=== PATIENT | female | born 1950 | race Hispanic/Latino ===

== ENCOUNTER 2021-04-03 20:39 | Emergency (ER) | payer MEDICARE, SELFPAY ==
--- NOTE | ~2021-04-03 | XR_ITS ---
XR foot LT min 3V DATE: 04/03/2021 21:18 INDICATION: Chronic ankle and calcaneal pain, worsening over the past 3 days TECHNIQUE: 4 views COMPARISON: None FINDINGS: There is diffuse osteopenia. Mild hallux valgus and bunion deformity. No fracture, dislocation, periosteal reaction or bone destruction. IMPRESSION: Mild hallux valgus and bunion deformity Osteopenia Reviewed, dictated and finalized at location A.
--- NOTE | ~2021-04-03 | XR_ITS ---
XR knee LT min 4V DATE: 04/03/2021 21:17 INDICATION: Anterior knee pain for 3 days. No injury. TECHNIQUE: 4 views COMPARISON: None FINDINGS: There is moderate suprapatellar knee joint effusion. Diffuse osteopenia. There is tricompartment periarticular spurring/mild osteoarthritis. Joint spaces appear relatively pr eserved. No fracture, dislocation, periosteal reaction or bone destruction, radiopaque intra-articular loose b tess or chondrocalcinosis. IMPRESSION: Knee joint effusion Tricompartment osteoarthritis Osteopenia Reviewed, dictated and finalized at location A.
[2021-04-03 20:42] VITALS: BP 136/76; PULSE 81; RESP 16; TEMP 36.4; O2SAT 99
[2021-04-03 22:09] VITALS: BP 144/66; PULSE 78; RESP 20; TEMP 37.1; O2SAT 99
[2021-04-04 00:08] VITALS: BP 133/86; PULSE 88; RESP 20; O2SAT 100
--- NOTE | 2021-04-04 00:14 | ED.GENADULT ---
HPI - General Adult General Chief complaint: Extremity Injury, Lower Stated complaint: heel pain Time Seen by Provider: 04/03/21 23:43 Source: patient and family Limitations: language barrier History of Present Illness HPI narrative: Patient is a 70 y/o female complaining of severe left knee pain while she was sitting in bed watching TV. She describes her pain sharp and rates it as 10/10 when it occurred. There was no known alleviating or exacerbating factor. However, her pain has resolved spontaneously. She has no pain at this time. Of note, patient is non [place] speaking and provided translation. Related Data Allergies Allergy/AdvReac Type Severity Reaction Status Date / Time diphenhydramine Allergy Mild Unknown Verified 04/03/21 22:16 Review of Systems Constitutional: Constitutional: Denies chills, Denies fever(s), Denies headache(s) and Denies weakness Eyes: Eyes: Denies blurry vision ENT: Denies headache(s) and Denies neck pain Cardiovascular: Cardiovascular: Denies chest pain and Denies dyspnea Respiratory: Respiratory: Denies cough and Denies dyspnea Gastrointestinal: Gastrointestinal: Denies abdominal pain, Denies diarrhea, Denies nausea and Denies vomiting Genitourinary: Genitourinary: Denies hematuria and Denies dysuria Musculoskeletal: Musculoskeletal: Reports as per HPI, Denies back pain and Denies neck pain Neurologic: Denies headache(s) and Denies weakness Exam Const: General: no acute distress and well developed Orientation/consciousness: oriented to person, oriented to place, oriented to time and patient oriented x3 HENMT: Head: normocephalic Ears: external ears normal General nose exam: Normal external nose present Eyes: General: appearance normal, both eyes and all related structures Conjunctivae: conjunctivae normal Neck: Neck: normal visual inspection and full ROM Chest: Chest palpation & inspection: normal inspection of the chest and no tenderness Resp: Effort & Inspection: normal respiratory effort Auscultation: clear to auscultation bilaterally Cardio: Rate: regular rate Rhythm: regular rhythm GI: GI Palp: No abdominal tenderness and Yes Soft to palpation Skin: General skin exam: normal color and turgor normal Neuro: General: oriented to person, oriented to place, oriented to time and patient oriented x3 Cognition (Neuro): normal cognition Extrem: General: normal to inspection, full ROM and no pedal edema Right lower extremity: knee Details: normal ROM; no tenderness Psych: Appearance: grossly normal Mental Status: mental status grossly normal Affect: normal affect Course Vital Signs Vital signs: Vital Signs Temperature 36.4 C L 04/03/21 20:42 Pulse Rate 81 04/03/21 20:42 Respiratory Rate 16 04/03/21 20:42 Blood Pressure 136/76 04/03/21 20:42 Pulse Oximetry 99 04/03/21 20:42 Temperature 37.1 C 04/03/21 22:09 Pulse Rate 88 04/04/21 00:08 Respiratory Rate 20 04/04/21 00:08 Blood Pressure 133/86 04/04/21 00:08 Pulse Oximetry 100 04/04/21 00:08 Medical Decision Making Vital Signs Vital Signs: Vital Signs Temperature 36.4 C L 04/03/21 20:42 Pulse Rate 81 04/03/21 20:42 Respiratory Rate 16 04/03/21 20:42 Blood Pressure 136/76 04/03/21 20:42 Pulse Oximetry 99 04/03/21 20:42 Temperature 37.1 C 04/03/21 22:09 Pulse Rate 88 04/04/21 00:08 Respiratory Rate 20 04/04/21 00:08 Blood Pressure 133/86 04/04/21 00:08 Pulse Oximetry 100 04/04/21 00:08 Discharge Plan Discharge Clinical Impression: Knee pain, left Qualifiers: Chronicity: unspecified Qualified Code(s): M25.562 - Pain in left knee Patient Disposition: Home, Self-Care Condition: Stable Instructions: Knee Pain (ED) Follow-up/Referrals: Willie,Barbara Reeves MD [Primary Care Provider] -
== END 2021-04-04 00:44 | disposition home or self-care (01) ==
PROVIDERS: Emergency Provider Emergency Medicine; PCP Family Medicine
DX: M25.562 Pain in left knee (principal)
CPT/HCPCS: 73564; 73630; 99284